=== PATIENT | female | born 1980 | race African-American/Black ===

== ENCOUNTER 2023-08-21 06:31 | Day surgery (SDC) | payer BC ==
[2023-08-14 12:00] VITALS: BMI 25.7
[2023-08-21] MEDS ORDERED: KETOROLAC TROMETHAMINE 0.5% EYE DROP 1 DROP DROPS ONE (06:40)
[2023-08-21] MEDS ORDERED: TROPICAMIDE 1% OPHTH SOLN 15 ML BOTTLE ONE (06:40)
[2023-08-21] MEDS ORDERED: OFLOXACIN 0.3% OPHTHALMIC SOLUTION 5 ML BOTTLE ONE (06:40)
[2023-08-21] MEDS ORDERED: PHENYLEPHRINE 2.5% OPTHALMIC DROP 2ML BOTTLE ONE (06:40)
[2023-08-21] MEDS ORDERED: CYCLOPENTOLATE HCL 1% OPHTH SOLN 2 ML BOTTLE ONE (06:40)
[2023-08-21] MEDS: CYCLOPENTOLATE HCL 1% OPHTH SOLN 2 ML BOTTLE OS SCH (07:10)
[2023-08-21] MEDS: TROPICAMIDE 1% OPHTH SOLN 15 ML BOTTLE OS SCH (07:10)
[2023-08-21] MEDS: KETOROLAC TROMETHAMINE 0.5% EYE DROP 1 DROP DROPS OS SCH (07:10)
[2023-08-21] MEDS: OFLOXACIN 0.3% OPHTHALMIC SOLUTION 5 ML BOTTLE OS SCH (07:10)
[2023-08-21] MEDS: PHENYLEPHRINE 2.5% OPHTH SOLN 15 ML BOTTLE OS SCH (07:10)
[2023-08-21 07:17] VITALS: RESP 16
[2023-08-21] MEDS ORDERED: BACITRACIN/POLYMYXIN OPH OINT 3.5 GM TUBE ONE (07:17)
[2023-08-21] MEDS ORDERED: EPINEPHrine/PF 1 MG/1 ML (1:1,000) AMPULE ONE (07:17)
[2023-08-21] MEDS ORDERED: POVIDONE-IODINE 5% OPHTHALMIC PREP 30 ML SOLUTION ONE (07:18)
[2023-08-21] MEDS ORDERED: EPI-SHUGARCAINE (EPINEPHRINE 0.025% & LIDOCAINE-PF 0.75%) 4ML ONE (07:18)
[2023-08-21] MEDS ORDERED: TETRACAINE 0.5% OPHTH SOLN 2 ML BOTTLE ONE (07:18)
[2023-08-21] MEDS ORDERED: BETAXOLOL HCL 0.25% OPHTHALMIC 10 ML DROPSBTL ONE (07:18)
[2023-08-21] MEDS ORDERED: BSS (NA/CA/MG/K) BALANCED SALT SOLUTION OPHTH SOLN 15 ML BOTTLE ONE (07:19)
[2023-08-21] MEDS ORDERED: NEO/POLYMYX B SULF/DEXAMETH OPHTHALMIC 5ML BOTTLE ONE (07:19)
[2023-08-21] MEDS ORDERED: MIDAZOLAM HCL 2 MG/2 ML SINGLE DOSE VIAL ONE (08:21)
[2023-08-21] MEDS ORDERED: ACETAMINOPHEN 325 MG TABLET (FP) PO PRN (09:19)
[2023-08-21] MEDS: ACETAMINOPHEN 325 MG TABLET (FP) PO ONE (09:29)
[2023-08-21 09:32] VITALS: BP 124/80; PULSE 69; TEMP 97.1
== END 2023-08-21 09:51 | disposition home or self-care (01) ==
LOC: FASU 06:31
PROVIDERS: ATTEND Ophthalmology
PROC: 08RK3JZ Replacement of Left Lens with Synthetic Substitute, Percutaneous Approach (ICD-10-PCS; principal; 2023-08-21 08:46)
DX: H25.12 Age-related nuclear cataract, left eye (principal)
CPT/HCPCS: 66984; V2632; 81025